=== PATIENT | female | born 2000 | race African-American/Black ===

== ENCOUNTER 2018-09-30 04:10 | Inpatient (IN) ==
[2018-09-30] MEDS ORDERED: ONDANSETRON 4 MG/2 ML VIAL IV PRN ×2 (04:22→10:27)
[2018-09-30] MEDS ORDERED: MEPERIDINE 50 MG/1 ML VIAL IM PRN (04:22)
[2018-09-30] MEDS ORDERED: MEPERIDINE 25 MG/1 ML VIAL IV PRN (04:22)
[2018-09-30] MEDS ORDERED: LACTATED RINGERS 250 ML IV ONE (04:22)
[2018-09-30 05:04] LABS: Basophils # 0.1 10*3/uL (0.0-0.2); Basophils % 0.4 % (0.0-0.8); Eosinophils # 0.3 10*3/uL (0.0-0.87); Hemoglobin 9.9 GM/DL (12.0-16.0); Immature Granulocytes % 1.2 %; Immature Granulocytes Absolute 0.16 #; Lymphocytes # 2.9 10*3/uL (1.4-4.0); Lymphocytes % 21.9 % (21.3-54.2); Mean Corpuscular HGB Conc 30.9 GM/DL (32-36); Mean Corpuscular Volume 73.2 FL (87-102); Neutrophils % 67.5 % (38.7-73.9); Platelet Count 203 T/CUMM (130-400); Red Blood Count 4.37 MC/CUMM (3.8-5.5); Red Cell Distribution Width 16.2 % (9.3-17.3); White Blood Count 13.1 T/CUMM (4-12)
[2018-09-30 05:19] LABS: Bilirubin,Total 0.5 MG/DL (0.2-1.0); Calcium 9.6 MG/DL (8.5-10.1); Osmolality,Calculated 265.1 MOS/KG (273-304); Total Protein 7.7 G/DL (6.4-8.3)
[2018-09-30 05:30] LABS: Hypochromasia 1+; Ovalocytes Slight; Platelet Estimate Adequate
[2018-09-30] MEDS ORDERED: FAMOTIDINE 20 MG/2 ML VIAL IV ONE (06:34)
[2018-09-30] MEDS ORDERED: ceFAZolin 2,000 MG in PREMIX 1 EACH IV ONE (06:35)
[2018-09-30] MEDS ORDERED: CITRIC ACID/SODIUM CITRATE 30 ML UDCUP PO ONE (06:35)
[2018-09-30] MEDS ORDERED: OXYTOCIN/LR 30 UNIT/1,000 ML BAG IV ONE (06:36)
[2018-09-30] MEDS ORDERED: OXYTOCIN 10 UNIT/ML VIAL IM ONE (06:37)
[2018-09-30] MEDS: LACTATED RINGERS 1,000 ML IV SCH ×2 (07:27→08:20)
[2018-09-30] MEDS ORDERED: BUPIVACAINE SPINAL 0.75% 2 ML AMP SPINAL ONE (07:58)
[2018-09-30] MEDS ORDERED: PHENYLEPHRINE 1 MG/10 ML SYRINGE IV ONE ×2 (07:58→10:48)
[2018-09-30] MEDS ORDERED: DEXAMETHASONE 4 MG/1 ML VIAL ONE (07:59)
[2018-09-30] MEDS ORDERED: EPINEPHrine 1 MG/ML VIAL ONE (07:59)
[2018-09-30] MEDS ORDERED: MORPHINE 10 MG/10 ML VIAL ONE (07:59)
[2018-09-30] MEDS ORDERED: BUPIVACAINE 0.5% 50 ML VIAL ONE (07:59)
[2018-09-30 10:01] LABS: Cord Venous Blood HCO3 20.7 MMOL/L; Cord Venous Blood PCO2 43.5 MMHG; Cord Venous Blood PO2 37.5
[2018-09-30 10:04] LABS: Apearance,Urine CLEAR (Clear); Bilirubin,Urine Negative (Negative); Blood, Urine Negative (Negative); Glucose,Urine (UA) Negative (Negative); Ketones,Urine 20 mg/dL (Negative); Nitrite,Urine Negative (Negative); Protein,Urine Negative; RBC,Urine <1 /HPF (0-4); Squamous Epithelial Cell,Urine Occasional /HPF (0-10); Urine Color Straw (Yellow); Urine Specific Gravity 1.006 (1.001-1.035); Urine Urobilinogen < 2.0 EU/DL (0.2-1.0)
[2018-09-30] MEDS ORDERED: SIMETHICONE CHEW 80 MG TABLET PO PRN (10:27)
[2018-09-30] MEDS ORDERED: ACETAMINOPHEN 325 MG TABLET PO PRN (10:27)
[2018-09-30] MEDS ORDERED: OXYTOCIN/LR 20 UNIT/1,000 ML BAG IV ONE (10:27)
[2018-09-30] MEDS ORDERED: MAGNESIUM HYDROXIDE SUSP 30 ML UDCUP PO PRN (10:27)
[2018-09-30] MEDS ORDERED: RHO(D) IMMUNE GLOBULIN 300 MCG SYRINGE IM ONE (10:27)
[2018-09-30] MEDS ORDERED: LACTATED RINGERS 1,000 ML IV SCH (10:30)
[2018-09-30] MEDS ORDERED: ceFAZolin 1,000 MG in SYRINGE 1 EACH IV SCH (10:30)
[2018-09-30] MEDS: ceFAZolin 1,000 MG in SYRINGE 1 EACH IV SCH (15:45)
[2018-09-30 18:15] LABS: Basophils % 0.2 % (0.0-0.8); Hematocrit 30.1 VOL% (35.7-47.0); Hemoglobin 9.4 GM/DL (12.0-16.0); Immature Granulocytes % 0.9 %; Immature Granulocytes Absolute 0.21 #; Lymphocytes # 1.1 10*3/uL (1.4-4.0); Lymphocytes % 4.9 % (21.3-54.2); Mean Corpuscular HGB Conc 31.2 GM/DL (32-36); Mean Corpuscular Volume 72.9 FL (87-102); Platelet Count 231 T/CUMM (130-400); Red Blood Count 4.13 MC/CUMM (3.8-5.5); Red Cell Distribution Width 16.2 % (9.3-17.3)
[2018-09-30 20:42] LABS: Band Neutrophils 2 % (0-10); Lymphocytes 5 % (20-55); Microcytosis 1+; Platelet Estimate Normal; Segmented Neutrophils 90 % (50-85); Total Cells Counted 100
[2018-09-30] MEDS: DOCUSATE SODIUM 100 MG CAPSULE PO SCH (21:08)
[2018-10-01] MEDS: ceFAZolin 1,000 MG in SYRINGE 1 EACH IV SCH (00:14)
[2018-10-01] MEDS: IBUPROFEN 800 MG TABLET PO PRN ×2 (02:23→22:02)
[2018-10-01 05:43] LABS: Basophils % 0.2 % (0.0-0.8); Eosinophils % 0.1 % (0.00-10.9); Hematocrit 26.9 VOL% (35.7-47.0); Hemoglobin 8.6 GM/DL (12.0-16.0); Immature Granulocytes Absolute 0.19 #; Lymphocytes # 2.1 10*3/uL (1.4-4.0); Lymphocytes % 10.7 % (21.3-54.2); Mean Corpuscular Volume 71.7 FL (87-102); Monocytes % 9.2 % (1.7-12.7); Neutrophils % 78.8 % (38.7-73.9); Platelet Count 225 T/CUMM (130-400); Red Blood Count 3.75 MC/CUMM (3.8-5.5); White Blood Count 19.9 T/CUMM (4-12)
[2018-10-01 06:07] LABS: Hypochromasia 1+; Lymphocytes 8 % (20-55); Platelet Estimate Adequate; Segmented Neutrophils 83 % (50-85); Total Cells Counted 100
[2018-10-01 06:08] LABS: Microcytosis Slight
[2018-10-01] MEDS: METOCLOPRAMIDE 10 MG TABLET PO SCH ×2 (08:11→15:39)
[2018-10-01] MEDS: DOCUSATE SODIUM 100 MG CAPSULE PO SCH ×2 (09:26→21:21)
[2018-10-01] MEDS: MULTIVITAMIN (PRENATAL) TABLET PO SCH (09:26)
[2018-10-01] MEDS: FERROUS SULFATE 325 MG TABLET PO SCH ×2 (09:27→21:21)
[2018-10-01] MEDS: MAGNESIUM HYDROXIDE SUSP 30 ML UDCUP PO SCH ×2 (13:23→21:21)
[2018-10-02 07:19] VITALS: BP 111/61
[2018-10-02] MEDS: MAGNESIUM HYDROXIDE SUSP 30 ML UDCUP PO SCH (08:39)
[2018-10-02] MEDS: FERROUS SULFATE 325 MG TABLET PO SCH (08:40)
[2018-10-02] MEDS: MULTIVITAMIN (PRENATAL) TABLET PO SCH (08:40)
[2018-10-02] MEDS: DOCUSATE SODIUM 100 MG CAPSULE PO SCH (08:41)
[2018-10-02] MEDS: METOCLOPRAMIDE 10 MG TABLET PO SCH ×2 (08:41)
== END 2018-10-02 13:00 | disposition home or self-care (01) | DRG 540 ==
LOC: N.LDOUT 04:10 → N.LD 04:15 → N.OB 13:24
PROVIDERS: ADMIT Obstetrics & Gynecology; ATTEND Obstetrics & Gynecology
PROC: LDCSECT (ICD-10-PCS; 2018-09-30 08:30)

== ENCOUNTER 2021-10-18 05:09 | Inpatient (IN) ==
[2021-10-18] MEDS ORDERED: LACTATED RINGERS 500 ML IV PRN (05:20)
[2021-10-18] MEDS ORDERED: METHYLERGONOVINE 0.2 MG/1 ML AMP IM PRN (05:20)
[2021-10-18] MEDS ORDERED: OXYTOCIN/LR 20 UNIT/1,000 ML BAG IV ONE ×3 (05:20→18:20)
[2021-10-18] MEDS ORDERED: ONDANSETRON 4 MG/2 ML VIAL IV PRN (05:20)
[2021-10-18] MEDS ORDERED: CARBOPROST TROMETHAMINE 250 MCG/ML AMP IM PRN (05:20)
[2021-10-18] MEDS ORDERED: miSOPROStoL 200 MCG TABLET RECTAL PRN (05:20)
[2021-10-18] MEDS ORDERED: TRANEXAMIC ACID 1,000 MG in SODIUM CHLORIDE 0.9% 100 ML IV PRN (05:20)
[2021-10-18] MEDS ORDERED: LACTATED RINGERS 1,000 ML IV SCH ×2 (05:30)
[2021-10-18 05:54] LABS: Basophils % 0.2 % (0.0-0.8); Eosinophils # 0.2 10*3/uL (0.0-0.87); Eosinophils % 1.3 % (0.00-10.9); Hematocrit 31.6 VOL% (35.7-47.0); Hemoglobin 10.3 GM/DL (12.0-16.0); Immature Granulocytes % 1.7 %; Immature Granulocytes Absolute 0.21 #; Lymphocytes # 2.7 10*3/uL (1.4-4.0); Lymphocytes % 21.8 % (21.3-54.2); Mean Corpuscular HGB Conc 32.6 GM/DL (32-36); Monocytes % 8.1 % (1.7-12.7); Neutrophils % 66.9 % (38.7-73.9); Platelet Count 220 T/CUMM (130-400); Red Blood Count 4.45 MC/CUMM (3.8-5.5); Red Cell Distribution Width 17.2 % (9.3-17.3); White Blood Count 12.4 T/CUMM (4-12)
[2021-10-18 06:12] LABS: Albumin 2.5 G/DL (3.4-5.0); Bilirubin,Total 0.5 MG/DL (0.20-1.00); Calcium 9.1 MG/DL (8.5-10.1); Osmolality,Calculated 271.7 MOS/KG (273-304); Potassium 3.9 MMOL/L (3.5-5.1); Total Protein 7.4 G/DL (6.4-8.2)
[2021-10-18] MEDS ORDERED: FAMOTIDINE 20 MG/2 ML VIAL IV ONE (07:00)
[2021-10-18] MEDS ORDERED: CITRIC ACID/SODIUM CITRATE 30 ML UDCUP PO ONE (07:00)
[2021-10-18] MEDS ORDERED: ceFAZolin 2,000 MG/50 ML DUPLEX IV ONE (07:00)
[2021-10-18] MEDS ORDERED: CARBOPROST TROMETHAMINE 250 MCG/ML AMP IM ONE (11:13)
[2021-10-18] MEDS ORDERED: miSOPROStoL 200 MCG TABLET ONE (11:13)
[2021-10-18] MEDS ORDERED: METHYLERGONOVINE 0.2 MG/1 ML AMP ONE (11:13)
[2021-10-18] MEDS ORDERED: TRANEXAMIC ACID 1,000 MG/10 ML VIAL ONE (11:14)
[2021-10-18] MEDS ORDERED: SODIUM CHLORIDE 0.9% 0 ML IV ONE (11:14)
[2021-10-18] MEDS ORDERED: ONDANSETRON 4 MG/2 ML VIAL ONE (11:15)
[2021-10-18] MEDS ORDERED: BUPIVACAINE SPINAL 0.75% 2 ML AMP SPINAL ONE (11:15)
[2021-10-18] MEDS ORDERED: PHENYLEPHRINE 1 MG/10 ML SYRINGE IV ONE (11:15)
[2021-10-18] MEDS ORDERED: buprenorphine HCL 0.3 MG/ML VIAL ONE (11:17)
[2021-10-18] MEDS ORDERED: KETOROLAC 30 MG/1 ML VIAL ONE (12:25)
[2021-10-18] MEDS ORDERED: ACETAMINOPHEN INJ 1,000 MG/100 ML VIAL IV ONE (12:25)
[2021-10-18 12:30] LABS: Bacteria,Urine Occasional /HPF (Few); RBC,Urine 1 /HPF (0-4); Squamous Epithelial Cell,Urine Occasional /HPF (0-10)
[2021-10-18 12:31] LABS: Bilirubin,Urine Negative (Negative); Blood, Urine Negative (Negative); Glucose,Urine (UA) Negative (Negative); Ketones,Urine 80 mg/dL (Negative); Nitrite,Urine Negative (Negative); Protein,Urine Negative (Negative); Urine Appearance Slightly Hazy (Clear); Urine Color Yellow (Yellow); Urine Specific Gravity 1.015 (1.001-1.035)
[2021-10-18 12:31] LABS: Cord Arterial Blood HCO3 20.1 MMOL/L
[2021-10-18 12:33] LABS: Cord Venous Blood HCO3 20.2 MMOL/L; Cord Venous Blood PCO2 55.7 MMHG; Cord Venous Blood PO2 21.3
[2021-10-18] MEDS ORDERED: ACETAMINOPHEN 500 MG TABLET PO SCH (18:00)
[2021-10-18] MEDS ORDERED: KETOROLAC 30 MG/1 ML VIAL IV SCH (18:00)
[2021-10-18] MEDS: KETOROLAC 30 MG/1 ML VIAL IV SCH (19:43)
[2021-10-18] MEDS: ACETAMINOPHEN 500 MG TABLET PO SCH (19:44)
[2021-10-18] MEDS ORDERED: SIMETHICONE CHEW 80 MG TABLET PO PRN (22:33)
[2021-10-19] MEDS: KETOROLAC 30 MG/1 ML VIAL IV SCH ×2 (02:10→08:41)
[2021-10-19] MEDS: ACETAMINOPHEN 500 MG TABLET PO SCH ×2 (02:11→08:36)
[2021-10-19] MEDS ORDERED: diphenhydrAMINE CAP 25 MG CAPSULE PO PRN (03:28)
[2021-10-19 06:14] LABS: Basophils % 0.2 % (0.0-0.8); Eosinophils # 0.1 10*3/uL (0.0-0.87); Eosinophils % 0.8 % (0.00-10.9); Hematocrit 26.7 VOL% (35.7-47.0); Immature Granulocytes % 0.9 %; Immature Granulocytes Absolute 0.15 #; Lymphocytes # 2.5 10*3/uL (1.4-4.0); Lymphocytes % 15.6 % (21.3-54.2); Mean Corpuscular HGB Conc 30.7 GM/DL (32-36); Mean Corpuscular Volume 72.4 FL (87-102); Mean Platelet Volume 11.7 FL (9.6-12.0); Monocytes # 1.3 10*3/uL (0.11-0.8); Monocytes % 8.1 % (1.7-12.7); Neutrophils % 74.4 % (38.7-73.9); Platelet Count 180 T/CUMM (130-400); Red Blood Count 3.69 MC/CUMM (3.8-5.5); Red Cell Distribution Width 17.3 % (9.3-17.3)
[2021-10-19 06:15] LABS: Hemoglobin 8.2 GM/DL (12.0-16.0)
[2021-10-19 07:38] LABS: Hepatitis B Surface Ag Quant < 0.10 Index; Hepatitis B Surface Ag Result Non-Reactive (NonReactive); Rubella Antibody IgG Result Reactive (NonReactive)
[2021-10-19 08:02] LABS: HIV Antigen/Antibody Result Nonreactive (Nonreactive)
[2021-10-19] MEDS: DOCUSATE SODIUM 100 MG CAPSULE PO SCH ×2 (08:35→21:08)
[2021-10-19] MEDS: FERROUS SULFATE 325 MG TABLET PO SCH ×2 (08:35→21:07)
[2021-10-19] MEDS: MAGNESIUM HYDROXIDE SUSP 30 ML UDCUP PO PRN (09:00)
[2021-10-19] MEDS ORDERED: IBUPROFEN 800 MG TABLET PO PRN (15:22)
[2021-10-19] MEDS: oxyCODONE/ACETAMINOPHEN 5-325 MG TABLET PO PRN (15:41)
[2021-10-20] MEDS: oxyCODONE/ACETAMINOPHEN 5-325 MG TABLET PO PRN ×2 (01:09→07:27)
[2021-10-20] MEDS: MAGNESIUM HYDROXIDE SUSP 30 ML UDCUP PO PRN (07:26)
[2021-10-20] MEDS: FERROUS SULFATE 325 MG TABLET PO SCH ×2 (07:27→08:56)
[2021-10-20] MEDS: DOCUSATE SODIUM 100 MG CAPSULE PO SCH ×2 (07:27→08:55)
[2021-10-20 08:45] VITALS: BP 124/58
== END 2021-10-20 13:15 | disposition home or self-care (01) | DRG 540 ==
LOC: N.LD 05:09 → N.OB 15:26
PROVIDERS: ADMIT Specialist; ATTEND Specialist
PROC: LDCSECT (ICD-10-PCS; 2021-10-18 12:00)